=== PATIENT | female | born 1960 | race Caucasian/White ===

== ENCOUNTER → 2016-12-12 | Outpatient (CLI) | payer BC ==
[~2016-12-12] MED LIST: EPA/GLA1 SGL PO; LEVOXYL0.125 MG PO; LIPITOR 10MG10 MG PO; MULTIPLE VITAMI1 TAB PO; PRINZIDE 12.5 M1 TA1 PO
== END ==
LOC: MC.RAD 16:02
DX: Z12.31 Encounter for screening mammogram for malignant neoplasm of breast (principal)

== ENCOUNTER → 2018-02-15 | Outpatient (CLI) | payer BC | LOC: MC.RAD 01-18 13:00 | DX: Z12.31 Encounter for screening mammogram for malignant neoplasm of breast (principal) ==

== ENCOUNTER → 2019-02-17 | Outpatient (CLI) | payer BC | LOC: MC.RAD 11:29 | DX: Z12.31 Encounter for screening mammogram for malignant neoplasm of breast (principal) ==

== ENCOUNTER → 2021-12-20 | Outpatient (CLI) | payer OTHER | LOC: MC.RAD 11:32 | DX: Z12.31 Encounter for screening mammogram for malignant neoplasm of breast (principal) ==

== ENCOUNTER → 2023-01-23 | Outpatient (CLI) | payer BC | LOC: MC.RAD 11-15 11:00 | DX: Z12.31 Encounter for screening mammogram for malignant neoplasm of breast (principal) ==